=== PATIENT | female | born 1995 | race Caucasian/White ===

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

== ENCOUNTER 2017-03-21 03:29 | Emergency (ER) | payer SELFPAY ==
[~2017-03-21] VITALS: Ht 162.5 cm; Wt 68.0 kg
[~2017-03-21 03:29] MED LIST: AUGMENTIN 875875 MG PO; MEDROL DOSEPAK4 MG PO; TYLENOL WITH C1 EACH PO
[2017-03-21] MEDS ORDERED: AMOXICILLIN,AM250 MG PO (04:28)
== END 2017-03-21 06:49 | disposition home or self-care (01) ==
LOC: ED 03:29
DX: J02.9 Acute pharyngitis, unspecified (principal)

== ENCOUNTER 2017-04-04 13:42 | Emergency (ER) | payer SELFPAY ==
[~2017-04-04] VITALS: Wt 68.0 kg
[~2017-04-04 13:42] MED LIST changes: +AMOXICILLIN,AM250 MG PO
[2017-04-04] MEDS ORDERED: PRENATAL VITAM1 EAC4 PO (14:18)
[2017-04-05] MEDS ORDERED: AMINOPHYLLIN200 MG PO (18:12)
== END 2017-04-04 14:39 | disposition home or self-care (01) ==
LOC: ED 13:42
DX: Z32.01 Encounter for pregnancy test, result positive (principal); F17.200 Nicotine dependence, unspecified, uncomplicated

== ENCOUNTER 2017-04-05 15:55 | Emergency (ER) | payer SELFPAY ==
[~2017-04-05] VITALS: Ht 162.5 cm; Wt 68.0 kg
[~2017-04-05 15:55] MED LIST changes: +PRENATAL VITAM1 EAC4 PO
[2017-04-05 16:28] LABS: BASO % 0.3 % (0.0-1.0); EOS # 0.2 10*3/uL (0.0-0.4); EOS % 1.6 % (1.0-4.0); HEMATOCRIT 45.6 % (37.0-47.0); HEMOGLOBIN 15.6 g/dl (12.0-16.0); LYMPH # 2.6 10*3/uL (1.3-4.4); LYMPH % 24.9 % (27.0-41.0); MEAN CELL VOLUME 93.1 fl (81.0-99.0); MEAN CORPUSCULAR HGB 31.8 pg (27.0-31.0); MEAN CORPUSCULAR HGB CONC 34.2 g/dl (33.0-37.0); MEAN PLATELET VOLUME 9.7 fl (9.6-12.3); MONO # 0.7 10*3/uL (0.1-1.0); MONO % 6.8 % (3.0-9.0); NEUT # 6.8 10*3/uL (2.3-7.9); NEUT % 66.1 % (47.0-73.0); PLATELET COUNT AUTOMATED 311 10*3/uL (130-400); RED CELL DISTRI WIDTH 12.3 % (0-14.5); WHITE BLOOD COUNT 10.3 10*3/uL (4.8-10.8)
[2017-04-05 16:44] LABS: ALBUMIN 4.1 gm/dl (3.1-4.5); ALKALINE PHOSPHATASE 97 U/L (45-117); BUN 10 mg/dl (7-24); CHLORIDE 103 mmol/L (98-107); CREATININE 0.91 mg/dL (0.55-1.02); POTASSIUM 3.7 mmol/L (3.5-5.1); SGOT/AST 12 IU/L (3-35); SGPT/ALT 20 U/L (12-78); SODIUM 136 mmol/L (136-145); TOTAL PROTEIN 8.3 gm/dL (6.4-8.2)
[2017-04-05 17:25] LABS: BILIRUBIN NEGATIVE (NEGATIVE); BLOOD 3+ (NEGATIVE); CLARITY SL CLOUDY (CLEAR); COLOR YELLOW (YELLOW); GLUCOSE NEGATIVE (NEGATIVE); KETONE NEGATIVE (NEGATIVE); LEUKO ESTERASE NEGATIVE (NEGATIVE); NITRITE NEGATIVE (NEGATIVE); UROBILINOGEN 0.2 E.U./dl (0.2-1.0)
[2017-04-05 17:37] LABS: BACTERIA 2+
[2017-04-05 17:42] LABS: RBC 21-30 rbc/hpf (0-2)
[2017-04-05] MEDS ORDERED: AMINOPHYLLIN200 MG PO (18:12)
== END 2017-04-05 18:04 | disposition home or self-care (01) ==
LOC: ED 15:55
PROVIDERS: Physician Assistant
DX: O23.41 Unspecified infection of urinary tract in pregnancy, first trimester (principal); O46.91 Antepartum hemorrhage, unspecified, first trimester; O99.331 Smoking (tobacco) complicating pregnancy, first trimester; F17.200 Nicotine dependence, unspecified, uncomplicated; Z3A.01 Less than 8 weeks gestation of pregnancy; Z79.899 Other long term (current) drug therapy

== ENCOUNTER 2017-04-07 13:45 | Emergency (ER) | payer MEDICAID ==
[~2017-04-07] VITALS: Wt 68.0 kg
[~2017-04-07 13:45] MED LIST changes: +AMINOPHYLLIN200 MG PO
== END 2017-04-07 14:49 | disposition home or self-care (01) ==
LOC: ED 13:45
DX: O46.91 Antepartum hemorrhage, unspecified, first trimester (principal); O99.331 Smoking (tobacco) complicating pregnancy, first trimester; F17.200 Nicotine dependence, unspecified, uncomplicated; Z3A.01 Less than 8 weeks gestation of pregnancy; Z79.899 Other long term (current) drug therapy

== ENCOUNTER 2017-09-12 03:42 | Emergency (ER) | payer OTHER ==
[~2017-09-12] VITALS: Ht 162.5 cm; Wt 83.9 kg
[2017-09-12 04:09] LABS: BASO % 0.2 % (0.0-1.0); EOS # 0.2 10*3/uL (0.0-0.4); EOS % 1.3 % (1.0-4.0); HEMATOCRIT 33.8 % (37.0-47.0); HEMOGLOBIN 11.3 g/dl (12.0-16.0); LYMPH # 2.8 10*3/uL (1.3-4.4); LYMPH % 21.8 % (27.0-41.0); MEAN CORPUSCULAR HGB 32.1 pg (27.0-31.0); MEAN CORPUSCULAR HGB CONC 33.4 g/dl (33.0-37.0); MEAN PLATELET VOLUME 9.3 fl (9.6-12.3); MONO # 1.3 10*3/uL (0.1-1.0); MONO % 10.1 % (3.0-9.0); NEUT # 8.4 10*3/uL (2.3-7.9); NEUT % 65.9 % (47.0-73.0); PLATELET COUNT AUTOMATED 237 10*3/uL (130-400); RED BLOOD COUNT 3.52 10*6/uL (4.10-5.10); RED CELL DISTRI WIDTH 12.8 % (0-14.5); WHITE BLOOD COUNT 12.7 10*3/uL (4.8-10.8)
[2017-09-12 04:16] LABS: BILIRUBIN NEGATIVE (NEGATIVE); BLOOD NEGATIVE (NEGATIVE); CLARITY CLEAR (CLEAR); COLOR YELLOW (YELLOW); GLUCOSE NEGATIVE (NEGATIVE); KETONE NEGATIVE (NEGATIVE); LEUKO ESTERASE NEGATIVE (NEGATIVE); NITRITE NEGATIVE (NEGATIVE); PH 6.5 (5.0-9.0); UROBILINOGEN 0.2 E.U./dl (0.2-1.0)
[2017-09-12 04:24] LABS: ALBUMIN 2.7 gm/dl (3.1-4.5); ALKALINE PHOSPHATASE 96 U/L (45-117); BUN 7 mg/dl (7-24); CHLORIDE 106 mmol/L (98-107); CREATININE 0.46 mg/dL (0.55-1.02); LIPASE 139 U/L (73-393); POTASSIUM 3.7 mmol/L (3.5-5.1); SGOT/AST 13 IU/L (3-35); SGPT/ALT 13 U/L (12-78); SODIUM 139 mmol/L (136-145); TOTAL PROTEIN 6.4 gm/dL (6.4-8.2)
[2017-09-12 04:25] LABS: WBC 0-2 wbc/hpf (0-5)
== END 2017-09-12 05:09 | disposition home or self-care (01) ==
LOC: ED 03:42
PROVIDERS: Student in an Organized Health Care Education/Training Program
DX: O26.892 Other specified pregnancy related conditions, second trimester (principal); R10.9 Unspecified abdominal pain

== ENCOUNTER 2017-11-04 19:56 | Emergency (ER) | payer OTHER ==
[~2017-11-04] VITALS: Ht 157.4 cm; Wt 88.0 kg
== END 2017-11-04 20:12 | disposition home or self-care (01) ==
LOC: ED 19:56
DX: O36.8130 Decreased fetal movements, third trimester, not applicable or unspecified (principal); O99.333 Smoking (tobacco) complicating pregnancy, third trimester; F17.200 Nicotine dependence, unspecified, uncomplicated; Z3A.35 35 weeks gestation of pregnancy

== ENCOUNTER 2017-11-21 07:32 | Emergency (ER) | payer OTHER | END 2017-11-21 08:50 | disposition short-term general hospital (02) | LOC: ED 07:32 | DX: O80 Encounter for full-term uncomplicated delivery (principal); Z37.0 Single live birth; Z3A.36 36 weeks gestation of pregnancy ==

== ENCOUNTER 2018-03-18 02:33 | Emergency (ER) | payer OTHER ==
[~2018-03-18] VITALS: Ht 162.5 cm; Wt 63.5 kg
[2018-03-18 03:08] LABS: BASO % 0.4 % (0.0-1.0); EOS # 0.1 10*3/uL (0.0-0.4); EOS % 1.2 % (1.0-4.0); HEMATOCRIT 43.1 % (37.0-47.0); HEMOGLOBIN 14.6 g/dl (12.0-16.0); LYMPH # 2.8 10*3/uL (1.3-4.4); LYMPH % 33.8 % (27.0-41.0); MEAN CELL VOLUME 92.3 fl (81.0-99.0); MEAN CORPUSCULAR HGB 31.3 pg (27.0-31.0); MEAN CORPUSCULAR HGB CONC 33.9 g/dl (33.0-37.0); MEAN PLATELET VOLUME 10.2 fl (9.6-12.3); MONO # 0.6 10*3/uL (0.1-1.0); MONO % 7.5 % (3.0-9.0); NEUT # 4.8 10*3/uL (2.3-7.9); PLATELET COUNT AUTOMATED 245 10*3/uL (130-400); RED BLOOD COUNT 4.67 10*6/uL (4.10-5.10); WHITE BLOOD COUNT 8.4 10*3/uL (4.8-10.8)
[2018-03-18 03:16] LABS: BILIRUBIN 1+ (NEGATIVE); BLOOD 3+ (NEGATIVE); CLARITY SL CLOUDY (CLEAR); COLOR YELLOW (YELLOW); GLUCOSE NEGATIVE (NEGATIVE); KETONE 2+ (NEGATIVE); LEUKO ESTERASE TRACE (NEGATIVE); NITRITE NEGATIVE (NEGATIVE); SPECIFIC GRAVITY >= 1.030 (1.005-1.030); UROBILINOGEN 0.2 E.U./dl (0.2-1.0)
[2018-03-18 03:18] LABS: URINE AMPHETAMINES < 1000 (1000ng/ml); URINE BARBITURATES < 200 (200ng/ml); URINE BENZODIAZEPINES < 200 (200ng/ml); URINE CANNABINOIDS (THC) > 50 (50ng/ml); URINE COCAINE < 300 (300ng/ml); URINE METHADONE < 300 (300ng/ml); URINE OPIATES < 300 (300ng/ml)
[2018-03-18 03:19] LABS: URINE PHENCYCLIDINE < 25 (25ng/ml)
[2018-03-18 03:24] LABS: ALKALINE PHOSPHATASE 77 U/L (45-117); BUN 13 mg/dl (7-24); CHLORIDE 109 mmol/L (98-107); CREATININE 0.72 mg/dL (0.55-1.02); POTASSIUM 3.2 mmol/L (3.5-5.1); SGOT/AST 22 IU/L (3-35); SGPT/ALT 38 U/L (12-78); SODIUM 143 mmol/L (136-145)
[2018-03-18 03:27] LABS: ACETAMINOPHEN (TYLENOL) < 5.0 ug/ml (10-30); ETHYL ALCOHOL < 3.0 mg/dl (<3)
[2018-03-18 03:29] LABS: EPITHELIAL CELLS 40-45; RBC 16-20 rbc/hpf (0-2)
[2018-03-18 03:30] LABS: BACTERIA TRACE
== END 2018-03-18 09:20 | disposition home or self-care (01) ==
LOC: ED 02:33
PROVIDERS: Student in an Organized Health Care Education/Training Program
DX: F43.21 Adjustment disorder with depressed mood (principal)

== ENCOUNTER 2018-05-23 19:55 | Emergency (ER) | payer OTHER ==
[~2018-05-23] VITALS: Ht 160 cm; Wt 72.6 kg
[2018-05-23] MEDS ORDERED: REGLAN10 M1 PO (20:14)
== END 2018-05-23 20:23 | disposition home or self-care (01) ==
LOC: ED 19:55
DX: Z32.01 Encounter for pregnancy test, result positive (principal); N91.1 Secondary amenorrhea; F17.200 Nicotine dependence, unspecified, uncomplicated; Z88.1 Allergy status to other antibiotic agents

== ENCOUNTER 2018-09-09 20:28 | Emergency (ER) | payer SELFPAY ==
[~2018-09-09] VITALS: Ht 160 cm
[~2018-09-09 20:28] MED LIST changes: +REGLAN10 M1 PO
== END 2018-09-09 22:23 | disposition left against medical advice (07) ==
LOC: ED 20:28
DX: O9A.212 Injury, poisoning and certain other consequences of external causes complicating pregnancy, second trimester (principal); O99.332 Smoking (tobacco) complicating pregnancy, second trimester; R10.30 Lower abdominal pain, unspecified; Z3A.23 23 weeks gestation of pregnancy; Z88.1 Allergy status to other antibiotic agents

== ENCOUNTER 2019-02-10 01:14 | Emergency (ER) | payer MEDICAID ==
[~2019-02-10] VITALS: Ht 157.4 cm; Wt 58.1 kg
[2019-02-10] MEDS ORDERED: Motrin,Rufen800 MG PO (02:12)
== END 2019-02-10 02:19 | disposition home or self-care (01) ==
LOC: ED 01:14
DX: M94.0 Chondrocostal junction syndrome [Tietze] (principal); F17.210 Nicotine dependence, cigarettes, uncomplicated; Z88.1 Allergy status to other antibiotic agents

== ENCOUNTER 2019-12-18 13:20 | Emergency (ER) | payer OTHER ==
[~2019-12-18] VITALS: Ht 157.4 cm; Wt 59.0 kg
[~2019-12-18 13:20] MED LIST changes: +Motrin,Rufen800 MG PO
== END 2019-12-18 16:04 | disposition left against medical advice (07) ==
LOC: ED 13:20
DX: R20.0 Anesthesia of skin (principal); Z79.899 Other long term (current) drug therapy; Z53.29 Procedure and treatment not carried out because of patient's decision for other reasons

== ENCOUNTER 2021-03-13 18:58 | Emergency (ER) | payer OTHER ==
[~2021-03-13] VITALS: Ht 160 cm; Wt 72.6 kg
[2021-03-13] MEDS ORDERED: OMNICEF300 MG PO (19:26)
== END 2021-03-13 19:36 | disposition home or self-care (01) ==
LOC: ED 18:58
DX: J06.9 Acute upper respiratory infection, unspecified (principal); H66.91 Otitis media, unspecified, right ear; Z88.1 Allergy status to other antibiotic agents

== ENCOUNTER 2024-03-28 14:16 | Emergency (ER) | payer MEDICAID ==
[~2024-03-28] VITALS: Wt 68.0 kg
[~2024-03-28 14:16] MED LIST changes: +OMNICEF300 MG PO
== END 2024-03-28 15:18 | disposition home or self-care (01) ==
LOC: ED 14:16
DX: S60.032A Contusion of left middle finger without damage to nail, initial encounter (principal); F32.A Depression, unspecified; Z88.1 Allergy status to other antibiotic agents; W22.03XA Walked into furniture, initial encounter; Y93.9 Activity, unspecified; Y92.89 Other specified places as the place of occurrence of the external cause; Y99.8 Other external cause status

== ENCOUNTER 2024-10-06 13:12 | Emergency (ER) | payer OTHER ==
[~2024-10-06] VITALS: Ht 157.4 cm; Wt 66.2 kg
[2024-10-06] MEDS ORDERED: PREDNISONE20 M1 PO (13:40)
[2024-10-06] MEDS ORDERED: Dexamethasone Sodium Phospha 20 MG/5 ML VIAL IM ONE (13:45)
== END 2024-10-06 13:50 | disposition home or self-care (01) ==
LOC: ED 13:12
DX: L25.9 Unspecified contact dermatitis, unspecified cause (principal); Z88.1 Allergy status to other antibiotic agents